=== PATIENT | female | born 1985 | race Two or more races ===

== ENCOUNTER 2016-07-07 13:20 | Emergency (ER) | payer OTHER ==
[~2016-07-07] VITALS: Ht 154.9 cm; Wt 45.4 kg
[2016-07-07 13:20] VITALS: BP 116/68
== END 2016-07-07 13:52 | disposition home or self-care (01) ==
LOC: ER 13:20
DX: S91.209A Unspecified open wound of unspecified toe(s) with damage to nail, initial encounter (principal); W22.8XXA Striking against or struck by other objects, initial encounter; Y93.89 Activity, other specified; Y92.89 Other specified places as the place of occurrence of the external cause; Y99.8 Other external cause status
CPT/HCPCS: 11730; 99284; A4606; Z7610